=== PATIENT | male | born 1965 | race African-American/Black ===

== ENCOUNTER 2019-08-01 09:48 | Outpatient (CLI) | payer BC, SELFPAY ==
--- NOTE | ~2019-08-01 | US_ITS ---
EXAMINATION: US venous doppler [facility] DATE: 08/01/2019 10:30 INDICATION: Left lower limb pain. TECHNIQUE: Grayscale ultrasound images without and with compression and Doppler ultrasound images of the left lower extremity veins were obtained. COMPARISON: Ultrasound 10/13/2016 FINDINGS: The visualized portions of left common femoral vein, profunda (deep) femoral vein, femoral vein, popl iteal vein, peroneal veins, posterior tibial veins, and greater saphenous vein outflow are patent. IMPRESSION: 1. No deep venous thrombosis. Reviewed, dictated and finalized at location A.
== END 2019-08-01 09:49 | disposition home or self-care (01) ==
PROVIDERS: PCP Family Medicine; Visit Provider Family Medicine
DX: M79.605 Pain in left leg (principal)
CPT/HCPCS: 93971

== ENCOUNTER 2020-08-04 09:12 | Outpatient (CLI) | payer BC, SELFPAY ==
[2020-08-04 12:27] LABS: Cholesterol 164 mg/dL (0-200); HDL Direct 40 mg/dL; Triglycerides 118 mg/dL (<150)
[2020-08-04 12:39] LABS: LDL Cholesterol Direct 96 mg/dL
[2020-08-04 12:55] LABS: Creatinine Urine 236.1 mg/dL
[2020-08-04 12:58] LABS: Hepatitis B Surface Antigen Negative (Negative); MALB Creatinine Ratio 39.9 mg/g (0-30); Microalbumin Urine Random 94.2 mg/L (0-16.7)
[2020-08-04 13:04] LABS: HAV RESULT Negative (Negative); Hepatitis B Core IgM Result Negative (Negative)
[2020-08-04 13:16] LABS: Hepatitis C Virus Antibody Negative (Negative)
== END 2020-08-04 09:13 | disposition home or self-care (01) ==
PROVIDERS: PCP Family Medicine; Visit Provider Internal Medicine Endocrinology, Diabetes & Metabolism
DX: E11.65 Type 2 diabetes mellitus with hyperglycemia (principal); Z79.4 Long term (current) use of insulin; R74.8 Abnormal levels of other serum enzymes
CPT/HCPCS: 36415; 80061; 80074; 82043

== ENCOUNTER 2020-08-11 10:26 | Outpatient (CLI) | payer BC, SELFPAY ==
--- NOTE | ~2020-08-11 | US_ITS ---
US abdomen limited DATE: 08/11/2020 11:07 INDICATION: Abnormal liver enzymes TECHNIQUE: Real-time imaging of liver, pancreas, gallbladder COMPARISON: None FINDINGS: The pancreas is not well demonstrated due to interference from bowel gas. There is hepatic steatosis. There is some focal relatively hypoechoic tissue adjacent to the gallblad josephine which may represent focal fatty sparing. CT abdomen examination would be helpful for exclusion of any possible hepatic or pancreatic mass lesions. Otherwise no hepatic space-occupying mass lesion is evident. Normal hepatopedal portal venous flow direction. No gallstones or gallbladder wall thickening. Negative sonographic Grewal's sign. The common bile moses t measures 5 mm, normal. IMPRESSION: Limited evaluation of the pancreas due to bowel gas and liver due to fatty infiltration; consider CT abdomen for more definitive evaluation Reviewed, dictated and finalized at Location A. Reviewed, dictated and finalized at location A. IMPRESSION: Limited evaluation of the pancreas due to bowel gas and liver due t o fatty infiltration; consider CT abdomen for more definitive evaluation
== END 2020-08-11 10:27 | disposition home or self-care (01) ==
PROVIDERS: PCP Family Medicine; Visit Provider Internal Medicine Endocrinology, Diabetes & Metabolism
DX: R74.8 Abnormal levels of other serum enzymes (principal); K76.0 Fatty (change of) liver, not elsewhere classified
CPT/HCPCS: 76705

== ENCOUNTER 2020-12-02 08:45 | Outpatient (CLI) | payer BC, SELFPAY ==
--- NOTE | 2020-12-02 08:59 | EST_ITS ---
Patient Info Name: Azam Prince Age: 55 years : 1965 Gender: Male Ht: 75 in Wt: 270 lbs BSA: 2.58 m2 HR: 89 bpm BP: 130 / 91 mmHg Heart Rhythm: Sinus Rhythm Exam Date: 12/02/2020 9:09 AM Exam Location: [facility] Stress Patient Status: Outpatient Admit Date: 12/02/2020 Staff Ordering Physician: Kaelyn Werner NP Attending Provider: Eddie Headley MD Exercise Technologist: Edilia Portillo CT Exercise Physician: Colin Mcnamara DO Exam Type: CA stress test treadmill Study Info A treadmill exercise stress test was performed. Summary 1. 1. Negative Juan exercise stress test for ischemic ST changes by ECG criteria. 2. 2. Mildly reduced functional capacity, achieving 8.9 METs of workload. 3. 3. Hypertensive response to exercise. 4. 4. Appropriate HR response to exercise. 5. 5. Appropriate HR recovery at 1 minute post exercise. 6. 6. No imaging with stress testing. 7. 7. Patient informed of the above results. Protocol: Juan Stress ECG Details Stage: REST Duration (min): 2 min : 1 sec Speed (mph): 0.0 Grade (%): 0 HR (bpm): 77 SBP (mmHg): 130 DBP (mmHg): 91 METS: --- Stage: REST Duration (min): 5 min : 55 sec Speed (mph): 0.0 Grade (%): 0 HR (bpm): 92 SBP (mmHg): 130 DBP (mmHg): 91 METS: --- Stage: STAGE 1 Duration (min): 1 min : 0 sec Speed (mph): 1.7 Grade (%): 10 HR (bpm): 108 SBP (mmHg): 130 DBP (mmHg): 91 METS: --- Stage: STAGE 1 Duration (min): 2 min : 0 sec Speed (mph): 1.7 Grade (%): 10 HR (bpm): 116 SBP (mmHg): 130 DBP (mmHg): 91 METS: --- Stage: STAGE 1 Duration (min): 3 min : 0 sec Speed (mph): 1.7 Grade (%): 10 HR (bpm): 120 SBP (mmHg): 178 DBP (mmHg): 89 METS: --- Stage: STAGE 2 Duration (min): 1 min : 0 sec Speed (mph): 2.5 Grade (%): 12 HR (bpm): 124 SBP (mmHg): 178 DBP (mmHg): 89 METS: --- Stage: STAGE 2 Duration (min): 2 min : 0 sec Speed (mph): 2.5 Grade (%): 12 HR (bpm): 131 SBP (mmHg): 197 DBP (mmHg): 84 METS: --- Stage: STAGE 2 Duration (min): 3 min : 0 sec Speed (mph): 2.5 Grade (%): 12 HR (bpm): 135 SBP (mmHg): 197 DBP (mmHg): 84 METS: --- Stage: STAGE 3 Duration (min): 1 min : 0 sec Speed (mph): 3.4 Grade (%): 14 HR (bpm): 143 SBP (mmHg): 217 DBP (mmHg): 90 METS: --- Stage: STAGE 3 Duration (min): 1 min : 0 sec Speed (mph): 3.4 Grade (%): 14 HR (bpm): 144 SBP (mmHg): 217 DBP (mmHg): 90 METS: --- Stage: RECOVERY Duration (min): 0 min : 59 sec Speed (mph): 0.0 Grade (%): 0 HR (bpm): 130 SBP (mmHg): 217 DBP (mmHg): 90 METS: --- Stage: RECOVERY Duration (min): 1 min : 59 sec Speed (mph): 0.0 Grade (%): 0 HR (bpm): 114 SBP (mmHg): 217 DBP (mmHg): 90 METS: ---
== END 2020-12-02 08:46 | disposition home or self-care (01) ==
PROVIDERS: PCP Family Medicine; Visit Provider Family Medicine
DX: R06.02 Shortness of breath (principal)
CPT/HCPCS: 93017

== ENCOUNTER 2020-12-18 16:57 | Outpatient (CLI) | payer BC, SELFPAY ==
--- NOTE | ~2020-12-18 | MR_ITS ---
EXAMINATION: MR cervical spine wo con EXAM DATE: 12/18/2020 17:41 INDICATION: M47.22 - Other spondylosis with radiculopathy, cervical region. TECHNIQUE: Multi-sequential, multiplanar MR images of the cervical spine were obtained without contra st. Axial T2, axial T2 MERGE sequence. Sagittal T1, T2, T2 fat saturation images also obtained. Com parison is made to prior examination from 05/03/2018. FINDINGS: Mild reversal of normal cervical lordosis. The vertebral bodies are aligned in the AP d imension. There is mild to moderate disc disease at C4-T1. The spinal cord signal intensity and intri nsic morphology is normal. Cervicomedullary junction is normal in appearance. There are no suspici ous marrow signal abnormalities. Paraspinal soft tissue is unremarkable. Level by level evaluation: C2-C3: Disc does not extend beyond the endplate margin. Uncovertebral joint arthropathy: None. Facet joint arthropathy: Mild. Neural foraminal stenosis: No stenosis. Central canal stenosis: No stenosis. C3-C4: Disc does not extend beyond the endplate margin. Uncovertebral joint arthropathy: Mild to moderate left, mild right. Facet joint arthropathy: Mild. Neural foraminal stenosis: Mild to moderate right, mild left. Central canal stenosis: No stenosis. C4-C5: There is a mild diffuse disc bulge. Uncovertebral joint arthropathy: Moderate bilateral, left greater than right. Facet joint arthropathy: Mild to moderate. Neural foraminal stenosis: Moderate to severe bilateral. Central canal stenosis: Mild. C5-C6: There is a mild diffuse disc bulge. Uncovertebral joint arthropathy: Mild to moderate bilateral. Facet joint arthropathy: Mild to moderate bilateral. Neural foraminal stenosis: Moderate right, mild left. Central canal stenosis: Mild. C6-C7: There is a mild diffuse disc bulge. Uncovertebral joint arthropathy: Mild to moderate bilateral. Facet joint arthropathy: Mild bilateral. Neural foraminal stenosis: Moderate left, mild to moderate right. Central canal stenosis: Mild. C7-T1: There is a mild diffuse disc bulge. Uncovertebral joint arthropathy: Moderate bilateral. Facet joint arthropathy: Mild to moderate bilateral. Neural foraminal stenosis: Mild to moderate right, mild left. Central canal stenosis: Mild. Spondylosis as minimally progressed compared to 2019. IMPRESSION: Multilevel neural foraminal stenosis as detailed above. Reviewed, dictated and finalized at location B.
== END 2020-12-18 16:58 | disposition home or self-care (01) ==
PROVIDERS: PCP Family Medicine; Visit Provider Nurse Practitioner
DX: M47.22 Other spondylosis with radiculopathy, cervical region (principal); M48.02 Spinal stenosis, cervical region
CPT/HCPCS: 72141